=== PATIENT | male | born 1980 | race Caucasian/White ===

== ENCOUNTER → 2024-10-18 | Outpatient (CLI) | payer BC ==
--- NOTE | 2024-10-19 04:58 | HMCIMG ---
EXAM: CT Abdomen and Pelvis without IV contrast. CLINICAL HISTORY: Right lower quadrant pain. TECHNIQUE: Thin collimated axial CT images of the abdomen and pelvis were obtained with sagittal and coronal reformatted images also submitted. CT scan done according to ALARA (As Low As Reasonably Achievable). CONTRAST: None. COMPARISON: None. FINDINGS: Unremarkable visualized lung parenchyma. There is no focal abnormality appreciated within the liver, gallbladder, pancreas, spleen, or adrenals. The left kidney is shrunken, measuring 2.6 x 1.7 cm. 1.1 cm hypodense cyst in the left kidney. The right kidney is normal in size, shape, and density. Subcentimeter cortical cyst at the mid-pole of the right kidney. No bilateral renal, ureteric or bladder calculi. There is no obvious bowel wall thickening. Bowel loops are normal in caliber without evidence of obstruction or ileus. The appendix is normal. Uncomplicated colonic diverticulosis. There is no abnormality within the urinary bladder. Unremarkable reproductive organs. Small fat containing umbilical hernia. Small fat containing bilateral inguinal hernias. Abdominal and pelvic vessels are patent. No lymphadenopathy. No free fluid. There is no acute osseous abnormality. Incidental bilateral L5 pars interarticularis defects without spondylolisthesis. IMPRESSION: 1. No acute abdominal or pelvic abnormality. 2. Atrophic left kidney, measuring 2.6 x 1.7 cm, with a 1.1 cm hypodense cyst. Subcentimeter cortical cyst in the right kidney. 3. Small fat-containing umbilical and bilateral inguinal hernias. 4. Uncomplicated colonic diverticulosis. 5. Incidental bilateral L5 pars interarticularis defects without spondylolisthesis. /Samantha
== END | disposition home or self-care (01) ==
LOC: RAH 10:11
PROVIDERS: ATTEND Family Medicine
DX: N28.1 Cyst of kidney, acquired (principal); K40.20 Bilateral inguinal hernia, without obstruction or gangrene, not specified as recurrent; K57.30 Diverticulosis of large intestine without perforation or abscess without bleeding; N26.1 Atrophy of kidney (terminal); K42.9 Umbilical hernia without obstruction or gangrene; M43.16 Spondylolisthesis, lumbar region; R10.31 Right lower quadrant pain
CPT/HCPCS: 74176